=== PATIENT | male | born 1995 | race African-American/Black ===

== ENCOUNTER 2024-06-14 14:49 | Emergency (ER) | payer SELFPAY | END 2024-06-14 16:08 | disposition home or self-care (01) | LOC: DL.ED 14:49 | DX: J06.9 Acute upper respiratory infection, unspecified (principal); F17.210 Nicotine dependence, cigarettes, uncomplicated; Z88.0 Allergy status to penicillin; Z86.16 Personal history of COVID-19 | CPT/HCPCS: 87804; 99283; U0002 ==

== ENCOUNTER 2024-06-15 16:04 | Emergency (ER) | payer MEDICAID | END 2024-06-15 18:38 | disposition left against medical advice (07) | LOC: DL.ED 16:04 | DX: Z53.21 Procedure and treatment not carried out due to patient leaving prior to being seen by health care provider (principal) ==

== ENCOUNTER 2024-07-30 20:27 | Emergency (ER) | payer MEDICAID, OTHER ==
[2024-07-30] MEDS: Ondansetron 4 MG Tab.DIS PO ONE (20:55)
[2024-07-30] MEDS: Sodium Chloride 0.9% 10 ML Syringe FLUSH PRN (21:22)
[2024-07-30] MEDS: Sodium Chloride 0.9% 1,000 ML IV ONE (21:22)
[2024-07-30 21:34] LABS: BASOPHILS PERCENT AUTO 0.4 % (0.0-1.0); EOSINOPHILS PERCENT AUTO 3.6 % (1.0-3.0); HEMATOCRIT 40.5 % (40.0-54.0); HEMOGLOBIN 14.3 g/dL (14.0-18.0); LYMPHOCYTES PERCENT AUTO 49.5 % (20.5-50.1); MEAN CORPUSCULAR HEMOGLOBIN 31.9 pg (27.0-34.0); MEAN CORPUSCULAR HGB CONC 35.3 g/dL (33.0-35.0); MEAN CORPUSCULAR VOLUME 90.4 fL (80-100); MONOCYTES PERCENT AUTO 10.1 % (2-8); NEUTROPHILS PERCENT AUTO 36.4 % (42.2-75.2); PLATELET COUNT,PLT 162 10^3/uL (150-450); RED BLOOD CELL COUNT 4.48 10^6/uL (4.6-6.2); WHITE BLOOD CELL COUNT,WBC 5.6 10^3/uL (5.0-10.0)
[2024-07-30 21:38] LABS: APPEARANCE,URINE CLEAR (CLEAR); BILIRUBIN,URINE NEGATIVE (NEGATIVE); COLOR,URINE YELLOW (YELLOW); GLUCOSE,URINE NEGATIVE (NEGATIVE); KETONES,URINE TRACE (NEGATIVE); LEUKOCYTE ESTERASE,URINE NEGATIVE (NEGATIVE); NITRITE,URINE NEGATIVE (NEGATIVE); OCCULT BLOOD,URINE NEGATIVE (NEGATIVE); PH,URINE 5.5 (5.0-9.0); PROTEIN,URINE NEGATIVE (NEGATIVE); UROBILINOGEN,URINE 0.2 mg/dL (0.2-1.0)
[2024-07-30 21:41] LABS: AMPHETAMINES,URINE NEGATIVE (NEGATIVE); BARBITURATES,URINE NEGATIVE (NEGATIVE); BENZODIAZEPINE,URINE NEGATIVE (NEGATIVE); MDMA (ECSTASY), URINE NEGATIVE (NEGATIVE); METHADONE,URINE NEGATIVE (NEGATIVE); METHAMPHETAMINES,URINE NEGATIVE (NEGATIVE); OPIATES,URINE NEGATIVE (NEGATIVE); OXYCODONE,URINE NEGATIVE (NEGATIVE); PHENCYCLIDINE,URINE NEGATIVE (NEGATIVE); TCA,URINE NEGATIVE (NEGATIVE)
[2024-07-30 21:54] LABS: A/G RATIO 1.2; ALANINE AMINOTRANSFERASE,ALT 31 U/L (16-63); ALBUMIN 3.6 g/dL (3.4-5.0); ALKALINE PHOSPHATASE 74 U/L (46-116); ANION GAP 7.9 mEq/L (7-13); ASPARTATE AMNIOTRANSFERASE,AST 24 U/L (15-37); BILIRUBIN TOTAL 0.4 mg/dL (0.2-1.0); BLOOD UREA NITROGEN,BUN 19 mg/dL (7-18); BUN/CREATININE RATIO 15.2 (No establ ref range); CALCIUM 9.2 mg/dL (8.5-10.1); CARBON DIOXIDE,CO2 30 mmol/L (21-32); CHLORIDE,CL 109 mmol/L (98-107); CREATININE 1.25 mg/dL (0.70-1.30); EST CRCL DRUG DOSING (CG) 74.96 mL/min; GLUCOSE RANDOM 103 mg/dL (70-99); LIPASE 39 U/L (16-77); POTASSIUM,K 3.9 mmol/L (3.5-5.1); PROTEIN TOTAL,TP 6.6 g/dL (6.4-8.2); SODIUM,NA 143 mmol/L (136-145)
[2024-07-30 21:55] LABS: C-REACTIVE PROTEIN < 0.50 ng/dL (<=0.50); ESTIMATED GFR 80 mL/min (>=60)
[2024-07-30 21:56] LABS: LACTIC ACID 1.3 mmol/L (0.4-2.0)
[2024-07-30] MEDS: Simethicone 80 MG Tab.Chew PO ONE (22:13)
== END 2024-07-30 22:20 | disposition home or self-care (01) ==
LOC: DL.ED 20:27
DX: R10.84 Generalized abdominal pain (principal); R11.0 Nausea; F17.210 Nicotine dependence, cigarettes, uncomplicated; Z88.0 Allergy status to penicillin
CPT/HCPCS: 36415; 74019; 80053; 80305; 81003; 83605; 83690; 85025; 86140; 96360; 99284; A9270; J7030; J3490

== ENCOUNTER 2024-08-29 18:32 | Emergency (ER) | payer OTHER ==
[2024-08-29] MEDS: Ondansetron 4 MG Tab.DIS PO ONE (20:04)
[2024-08-29 20:26] LABS: HEMATOCRIT 42.5 % (40.0-54.0); HEMOGLOBIN 14.9 g/dL (14.0-18.0); MEAN CORPUSCULAR HEMOGLOBIN 30.9 pg (27.0-34.0); MEAN CORPUSCULAR HGB CONC 35.1 g/dL (33.0-35.0); MEAN CORPUSCULAR VOLUME 88.2 fL (80-100); PLATELET COUNT,PLT 160 10^3/uL (150-450); RED BLOOD CELL COUNT 4.82 10^6/uL (4.6-6.2); WHITE BLOOD CELL COUNT,WBC 4.2 10^3/uL (5.0-10.0)
[2024-08-29 20:29] LABS: BASOPHILS PERCENT AUTO 0.5 % (0.0-1.0); EOSINOPHILS PERCENT AUTO 3.8 % (1.0-3.0); LYMPHOCYTES PERCENT AUTO 57.5 % (20.5-50.1); MONOCYTES PERCENT AUTO 7.4 % (2-8); NEUTROPHILS PERCENT AUTO 30.8 % (42.2-75.2)
[2024-08-29 20:48] LABS: A/G RATIO 1.2; ALBUMIN 3.7 g/dL (3.4-5.0); ANION GAP 13.6 mEq/L (7-13); BILIRUBIN TOTAL 0.3 mg/dL (0.2-1.0); BUN/CREATININE RATIO 13.4 (No establ ref range); CREATININE 1.12 mg/dL (0.70-1.30); EOSINOPHILS PERCENT MAN 2 % (1-3); EST CRCL DRUG DOSING (CG) 84.29 mL/min; LYMPHOCYTES PERCENT MAN 61 % (20-50); MONOCYTES PERCENT MAN 8 % (2-8); POTASSIUM,K 3.6 mmol/L (3.5-5.1); PROTEIN TOTAL,TP 6.7 g/dL (6.4-8.2); SEG NEUTROPHILS PERCENT MAN 29 % (42-75)
[2024-08-29] MEDS: Take Home: Ondansetron 4 MG Tab.DIS, 5 Tab Pack PO ONE (21:34)
== END 2024-08-29 21:51 | disposition home or self-care (01) ==
LOC: DL.ED 18:32
DX: F41.9 Anxiety disorder, unspecified (principal); G47.09 Other insomnia; R11.0 Nausea; Z88.0 Allergy status to penicillin
CPT/HCPCS: 36415; 80053; 82947; 85025; 99284; A9270; Q0162; 99283

== ENCOUNTER 2024-09-18 01:10 | Emergency (ER) | payer OTHER ==
[2024-09-18 01:40] LABS: BASOPHILS PERCENT AUTO 0.5 % (0.0-1.0); EOSINOPHILS PERCENT AUTO 2.7 % (1.0-3.0); HEMATOCRIT 43.1 % (40.0-54.0); HEMOGLOBIN 15.2 g/dL (14.0-18.0); LYMPHOCYTES PERCENT AUTO 40.8 % (20.5-50.1); MEAN CORPUSCULAR HEMOGLOBIN 31.3 pg (27.0-34.0); MEAN CORPUSCULAR HGB CONC 35.3 g/dL (33.0-35.0); MEAN CORPUSCULAR VOLUME 88.7 fL (80-100); MONOCYTES PERCENT AUTO 10.1 % (2-8); NEUTROPHILS PERCENT AUTO 45.9 % (42.2-75.2); PLATELET COUNT,PLT 160 10^3/uL (150-450); RED BLOOD CELL COUNT 4.86 10^6/uL (4.6-6.2); WHITE BLOOD CELL COUNT,WBC 5.5 10^3/uL (5.0-10.0)
[2024-09-18 02:01] LABS: A/G RATIO 1.3; ALANINE AMINOTRANSFERASE,ALT 33 U/L (16-63); ALBUMIN 3.9 g/dL (3.4-5.0); ALKALINE PHOSPHATASE 78 U/L (46-116); ANION GAP 12.8 mEq/L (7-13); ASPARTATE AMNIOTRANSFERASE,AST 26 U/L (15-37); BILIRUBIN TOTAL 0.4 mg/dL (0.2-1.0); BLOOD UREA NITROGEN,BUN 21 mg/dL (7-18); BUN/CREATININE RATIO 14.4 (No establ ref range); CALCIUM 9.2 mg/dL (8.5-10.1); CARBON DIOXIDE,CO2 29 mmol/L (21-32); CHLORIDE,CL 104 mmol/L (98-107); CREATININE 1.46 mg/dL (0.70-1.30); GLUCOSE RANDOM 86 mg/dL (70-99); POTASSIUM,K 3.8 mmol/L (3.5-5.1); PROTEIN TOTAL,TP 6.9 g/dL (6.4-8.2); SODIUM,NA 142 mmol/L (136-145)
[2024-09-18 02:05] LABS: ESTIMATED GFR 66 mL/min (>=60)
[2024-09-18] MEDS: Dexamethasone 4 MG/ML SDV IM ONE (02:17)
== END 2024-09-18 02:28 | disposition home or self-care (01) ==
LOC: DL.ED 01:10
DX: J06.9 Acute upper respiratory infection, unspecified (principal); B97.89 Other viral agents as the cause of diseases classified elsewhere; N17.9 Acute kidney failure, unspecified; R03.0 Elevated blood-pressure reading, without diagnosis of hypertension; F17.209 Nicotine dependence, unspecified, with unspecified nicotine-induced disorders; Z88.0 Allergy status to penicillin
CPT/HCPCS: 36415; 71046; 80053; 84484; 85025; 87428; 96372; 99283; J1100; 99284

== ENCOUNTER 2024-09-20 16:04 | Emergency (ER) | payer OTHER | END 2024-09-20 17:16 | disposition home or self-care (01) | LOC: DL.ED 16:04 | DX: B34.9 Viral infection, unspecified (principal); Z88.0 Allergy status to penicillin | CPT/HCPCS: 87428-QW; 99282; 99283 ==

== ENCOUNTER 2024-12-19 18:28 | Emergency (ER) | payer OTHER ==
[2024-12-19] MEDS: Ketorolac 30 MG/ML SDV IM ONE (22:11)
== END 2024-12-19 22:31 | disposition home or self-care (01) ==
LOC: DL.ED 18:28
DX: T33.012A Superficial frostbite of left ear, initial encounter (principal); T33.011A Superficial frostbite of right ear, initial encounter; F17.210 Nicotine dependence, cigarettes, uncomplicated; Z88.0 Allergy status to penicillin; Z86.16 Personal history of COVID-19; X31.XXXA Exposure to excessive natural cold, initial encounter; Y93.89 Activity, other specified
CPT/HCPCS: 96372; 99283; J1885

== ENCOUNTER 2025-03-31 08:23 | Emergency (ER) | payer OTHER ==
[2025-03-31] MEDS ORDERED: Sodium Chloride 0.9% 10 ML Syringe FLUSH PRN (08:37)
[2025-03-31] MEDS ORDERED: Ondansetron 8 MG in Sodium Chloride 0.9% 50 ML IV ONE (08:37)
[2025-03-31] MEDS: Sodium Chloride 0.9% 1,000 ML IV ONE (08:50)
[2025-03-31 08:51] LABS: BASOPHILS PERCENT AUTO 0.7 % (0.0-1.0); EOSINOPHILS PERCENT AUTO 2.6 % (1.0-3.0); HEMATOCRIT 44.4 % (40.0-54.0); HEMOGLOBIN 15.6 g/dL (14.0-18.0); LYMPHOCYTES PERCENT AUTO 33.7 % (20.5-50.1); MEAN CORPUSCULAR HEMOGLOBIN 31.3 pg (27.0-34.0); MEAN CORPUSCULAR HGB CONC 35.1 g/dL (33.0-35.0); MONOCYTES PERCENT AUTO 10.6 % (2-8); NEUTROPHILS PERCENT AUTO 52.4 % (42.2-75.2); PLATELET COUNT,PLT 148 10^3/uL (150-450); RED BLOOD CELL COUNT 4.99 10^6/uL (4.6-6.2); WHITE BLOOD CELL COUNT,WBC 4.2 10^3/uL (5.0-10.0)
[2025-03-31] MEDS: Ondansetron 4 MG/2 ML SDV IVPUSH ONE (08:57)
[2025-03-31 09:08] LABS: A/G RATIO 1.1; ALBUMIN 3.9 g/dL (3.4-5.0); ANION GAP 10.8 mEq/L (7-13); BILIRUBIN TOTAL 1.2 mg/dL (0.2-1.0); BUN/CREATININE RATIO 16.9 (No establ ref range); CALCIUM 9.3 mg/dL (8.5-10.1); CREATININE 1.3 mg/dL (0.70-1.30); EST CRCL DRUG DOSING (CG) 68.21 mL/min; POTASSIUM,K 3.8 mmol/L (3.5-5.1); PROTEIN TOTAL,TP 7.6 g/dL (6.4-8.2)
== END 2025-03-31 09:35 | disposition home or self-care (01) ==
LOC: DL.ED 08:23
DX: R11.2 Nausea with vomiting, unspecified (principal); R19.7 Diarrhea, unspecified; Z86.16 Personal history of COVID-19; Z88.0 Allergy status to penicillin; Z88.1 Allergy status to other antibiotic agents
CPT/HCPCS: 36415; 80053; 85025; 96361; 96374; 99284; J2405; J7030

== ENCOUNTER 2025-04-06 06:38 | Emergency (ER) | payer OTHER | END 2025-04-06 08:31 | disposition home or self-care (01) | LOC: DL.ED 06:38 | DX: S20.211A Contusion of right front wall of thorax, initial encounter (principal); Z86.16 Personal history of COVID-19; F17.200 Nicotine dependence, unspecified, uncomplicated; Z88.0 Allergy status to penicillin; Y04.0XXA Assault by unarmed brawl or fight, initial encounter | CPT/HCPCS: 71101-RT; 99284 ==

== ENCOUNTER 2025-06-09 07:15 | Emergency (ER) | payer OTHER | END 2025-06-09 08:20 | disposition home or self-care (01) | LOC: DL.ED 07:15 | DX: J06.9 Acute upper respiratory infection, unspecified (principal); F17.200 Nicotine dependence, unspecified, uncomplicated; Z86.16 Personal history of COVID-19; Z88.0 Allergy status to penicillin; Z88.1 Allergy status to other antibiotic agents | CPT/HCPCS: 87081; 87428-QW; 87430; 99283 ==